=== PATIENT | female | born 1935 | race Caucasian/White ===

== ENCOUNTER 2021-05-15 18:05 | Emergency (ER) | payer MEDICARE, SELFPAY ==
--- NOTE | ~2021-05-15 | XR_ITS ---
EXAMINATION: XR chest 2V EXAM DATE: 05/15/2021 18:33 INDICATION: COUGH, SOB . TECHNIQUE: Frontal and lateral projections of the chest obtained and reviewed. Comparison is made to prior examination from 05/16/2018. FINDINGS: Some chronic hyperinflation. No confluent consolidation, pneumothorax or pleural effusion s uspected. Cardiomediastinal silhouette is normal. Left humeral enchondroma. Surgical clips. Moderate thoracolumbar scoliosis. IMPRESSION: No acute cardiopulmonary findings. Reviewed, dictated and finalized at location A. [employer]
--- NOTE | 2021-05-15 18:07 | ED.URI ---
HPI - URI/Sore Throat General Chief Complaint: Upper Respiratory Infection Stated Complaint: Cough Time Seen by Provider: 05/15/21 18:07 Source: patient, family and RN notes reviewed History of Present Illness HPI Narrative: Patient is a 5-year-old female presents the urgent care with complaints of a cough that started last night. Patient states that she has a history of bronchitis but denies of any pneumonia or lung disease. Patient states that she feels short of breath but denies any chest pain or chest heaviness. Denies any fever, chills, nausea or vomiting. Her is with her and denies of any illness. States that they have been COVID vaccinated and has had no recent exposure. Patient states that she texted her doctor this morning and thought that he would give her antibiotics but he suggested she come to the urgent care. No other acute complaints. Patient has not taken anything [id number] for her symptoms. No acute distress noted. Patient and spouse aware of the plan of care. Some parts of this dictation were generated by voice recognition software and may contain typographical and/or grammatical inaccuracies. Related Data Home Medications Medication Instructions Recorded Confirmed amlodipine 05/15/21 esomeprazole magnesium [Nexium] mg 05/15/21 metoprolol tartrate 05/15/21 oxycodone 05/15/21 timolol maleate drp 05/15/21 Allergies Allergy/AdvReac Type Severity Reaction Status Date / Time Cephalosporins Allergy Severe HIVES, Verified 05/15/21 18:16 DIFFIULTY BREATHING acetaminophen Allergy Intermediate Other Verified 05/15/21 18:16 codeine Allergy Mild Other Verified 05/15/21 18:16 hydromorphone Allergy Mild Other Verified 05/15/21 18:16 meperidine Allergy Mild Other Verified 05/15/21 18:16 propoxyphene Allergy Mild Other Verified 05/15/21 18:16 Quinolones Allergy Mild Other Verified 05/15/21 18:16 Review of Systems Review of Systems: CONSTITUTIONAL: Denies fever, chills, or sweats. EYES: Denies visual changes, redness, or discharge. ENT: Denies rhinorrhea, congestion, sore throat, or otalgia. CARDIOVASCULAR: Denies chest pain, palpitations, or edema. RESPIRATORY: Reports a mild cough with intermittent dyspnea GASTROINTESTINAL: Denies abdominal pain, nausea, vomiting, or diarrhea. GENITOURINARY: Denies dysuria or hematuria. SKIN: Denies rash or itching. MUSCULOSKELETAL: Denies back pain, joint pain, or myalgia. NEUROLOGIC: Denies headache, numbness, or weakness. All other systems reviewed are negative, except as documented in HPI. PMFSH Comments At the time of my signature, I reviewed and agree with the nursing past medical, surgical, social, and family history. There is no relevant family history pertinent to the patient complaint. Exam Narrative: GENERAL: This is a well-nourished, well-developed patient, in no apparent distress. HEAD: normocephalic, atraumatic. EYES: PERRL. Sclera clear/white. Vision is grossly intact. EARS: External ears normal, auditory canals clear and without drainage, TMs normal without perforation. Hearing grossly intact. NOSE: External nose normal with no obvious nasal discharge, nares without redness, no rhinorrhea. THROAT: Mucous membranes moist, posterior pharynx clear. NECK: Neck supple CARDIOVASCULAR: Regular rate and rhythm RESPIRATORY: Crackles throughout, with the exception of clear to right lower GASTROINTESTINAL: Abdomen soft, non-tender, nondistended. Bowel sounds are active. No hepato-splenomegaly, or palpable masses. No guarding. SKIN: warm, intact with no suspicious lesions or rash, good texture and turgor. NEURO: awake, alert, and oriented to person, place and time. There were no obvious focal neurologic abnormalities. EXTREMITIES: No clubbing, cyanosis, or edema. Course Course Level of Care: Express Care Visit Vital Signs Vital signs: Vital Signs Temperature 98.5 F 05/15/21 18:18 Pulse Rate 99 05/15/21 18:18 Respiratory Rate 2
[2021-05-15 18:18] VITALS: BP 184/95; PULSE 99; RESP 20; TEMP 36.9; O2SAT 98
== END 2021-05-15 18:50 | disposition home or self-care (01) ==
PROVIDERS: Emergency Provider Nurse Practitioner Family
DX: R05.9 Cough, unspecified (principal); I10 Essential (primary) hypertension; K21.9 Gastro-esophageal reflux disease without esophagitis
CPT/HCPCS: 71046; 99213; G0463

== ENCOUNTER 2023-06-08 15:25 | Emergency (ER) | payer MEDICARE, SELFPAY ==
[2023-06-08 15:42] VITALS: BP 156/79; PULSE 104; RESP 16; TEMP 37.2; O2SAT 100
[2023-06-08 16:06] VITALS: BP 156/79; PULSE 104; RESP 16; TEMP 37.2; O2SAT 100
--- NOTE | 2023-06-08 16:30 | ED.GENADULT ---
HPI - General Adult General Chief complaint: Urogenital-Female Stated complaint: UTI/ Rash Source: patient Mode of arrival: ambulatory Limitations: no limitations History of Present Illness HPI narrative: Patient brought in by daughter requesting urinalysis be performed. Patient was hospitalized in the fall of 2022 for a urinary tract infection. Her primary symptoms at that time were feeling unsteady on her feet and some mental status changes. At the at the time of her discharge she was given a prescription for Augmentin and advised that she should initiate oral antibiotic therapy in the event that she has recurrence of her symptoms. With her infection in the fall she never had urinary symptoms. Yesterday she experienced some chills and has felt a bit off-balance since that time. She suspects she has a urinary tract infection and started taking her prescribed Augmentin. She has had 3 doses of antibiotics since yesterday. She is currently ambulating with a cane and also has a walker at home. She denies any fever, urinary symptoms, abdominal pain. She does have some low back pain but has underlying fibromyalgia. They were unable to determine how to have urinalysis performed outpatient today so came in for urine to be sent for analysis and reflex to culture. Her also about a year ago. She saw him experience a fall which ultimately caused his demise. She has been picking at her hair in the left side of her face intermittently since then. Related Data Home Medications Medication Instructions Recorded Confirmed oxycodone 5 mg tablet 5 mg PO DAILY 05/15/21 06/08/23 amlodipine 5 mg tablet 5 mg PO DAILY 06/08/23 06/08/23 duloxetine 30 mg capsule,delayed 30 mg PO DAILY 06/08/23 06/08/23 release lidocaine HCl 2 % mucosal solution 5 ml PO DAILY 06/08/23 06/08/23 (Lidocaine Viscous) timolol maleate 0.5 % eye drops 2 drp EACH EYE DAILY 06/08/23 06/08/23 Allergies Allergy/AdvReac Type Severity Reaction Status Date / Time Cephalosporins Allergy Severe HIVES, Verified 06/08/23 16:06 DIFFIULTY BREATHING acetaminophen Allergy Intermediate Other Verified 06/08/23 16:06 codeine Allergy Mild Other Verified 06/08/23 16:06 hydromorphone Allergy Mild Other Verified 06/08/23 16:06 meperidine Allergy Mild Other Verified 06/08/23 16:06 propoxyphene Allergy Mild Other Verified 06/08/23 16:06 Quinolones Allergy Mild Other Verified 06/08/23 16:06 Review of Systems Review of Systems: CONSTITUTIONAL: Denies fever, chills, or sweats. EYES: Denies visual changes, redness, or discharge. ENT: Denies rhinorrhea, congestion, sore throat, or otalgia. CARDIOVASCULAR: Denies chest pain, palpitations, or edema. RESPIRATORY: Denies cough or dyspnea. GASTROINTESTINAL: Denies abdominal pain, nausea, vomiting, or diarrhea. GENITOURINARY: Denies dysuria or hematuria. SKIN: reports wound to the left side of the face. Denies rash or itching. MUSCULOSKELETAL: Reports low back pain. Denies joint pain, or myalgia. NEUROLOGIC: Reports feeling slightly off balance. Denies headache, numbness, dizziness, or weakness. PSYCHIATRIC: Denies anxiety or depression. [facility] Past Medical History Medical History Fibromyalgia Surgical History Surgical History History of cholecystectomy History of hysterectomy Family History Family History Mother Family history non-contributory Social History Social History Smoking status: Never smoker Alcohol intake: never Substance use: never Living arrangements: assisted living Gender identity (if verbalized by the patient): Female Sexual Orientation (if Verbalized by the Patient): Straight or Heterosexual Spiritual care concerns: No Exam
== END 2023-06-08 16:32 | disposition home or self-care (01) ==
PROVIDERS: Emergency Provider Nurse Practitioner
DX: N30.01 Acute cystitis with hematuria (principal); M79.7 Fibromyalgia
CPT/HCPCS: 81003; 87086; 99213; G0463